=== PATIENT | male | born 1985 | race Caucasian/White ===

== ENCOUNTER → 2022-10-27 17:29 | Outpatient (CLI) | payer OTHER, SELFPAY | PROVIDERS: Referring Provider Obstetrics & Gynecology; Visit Provider Obstetrics & Gynecology | DX: Z31.441 Encounter for testing of male partner of patient with recurrent pregnancy loss (principal); Z82.79 Family history of other congenital malformations, deformations and chromosomal abnormalities | CPT/HCPCS: 36415; 88230; 88262 ==

== ENCOUNTER → 2023-07-17 07:14 | Outpatient (CLI) | payer OTHER, SELFPAY ==
--- NOTE | 2023-07-17 07:16 | DI.MRI.S_ITS ---
PROCEDURE: MR LUMBAR SPINE WO CON INDICATIONS: Low back pain, unspecified TECHNIQUE: Noncontrast sagittal T1 spin echo and T2 fast echo, sagittal STIR, and T2 fast spin echo through the lumbar spine. In cases with scoliosis, additional coronal T2 fast spin echo may be performed. COMPARISON: None. FINDINGS: Image quality: Excellent. Alignment and Curvature: 11 millimeters of anterolisthesis of L5-S1, consistent with grade 2. Minimal retrolisthesis of L4 on L5. Bone Marrow: Bilateral L5 pars interarticularis defects. Modic type 1 and type 2 degenerative endplate changes at L5-S1. Marrow is otherwise of normal overall signal. No acute vertebral body compression fractures. Sclerotic focus within the left iliac bone, likely a bone island. Spinal Cord: Conus medullaris terminates at the L1 level. Visualized cord demonstrates normal signal and size. Paraspinous Soft Tissues: No paravertebral masses. T12-L1: Normal appearance. L1-L2: Normal appearance. L2-L3: Normal appearance. L3-L4: Normal appearance. L4-L5: Disc desiccation height loss. Minimal posterior disc bulge. No central canal or neural foraminal stenosis. L5-S1: Anterolisthesis. No central canal stenosis. Uncovering of the disc. Facet arthropathy. Severe bilateral neural foraminal stenosis, worse on the right with likely compression of the exiting nerve roots. IMPRESSION: 1. Grade 2 anterolisthesis of L5-S1 with bilateral pars interarticularis defects. 2. Severe bilateral neural foraminal stenosis at L5-S1 with likely compression of the exiting nerve roots, right greater than left. Dictated by: Marcos Armendariz M.D. on 07/17/2023 at 8:33 Approved by: Marcos Armendariz M.D. on 07/17/2023 at 8:39
== END ==
LOC: MRI 07:15
PROVIDERS: Referring Provider Internal Medicine; Visit Provider Internal Medicine
DX: M48.07 Spinal stenosis, lumbosacral region (principal); M43.17 Spondylolisthesis, lumbosacral region; M54.50 Low back pain, unspecified; G54.9 Nerve root and plexus disorder, unspecified
CPT/HCPCS: 72148

== ENCOUNTER → 2023-09-08 15:18 | Outpatient (CLI) | payer OTHER, SELFPAY ==
--- NOTE | 2023-09-08 15:19 | DI.MRI.S_ITS ---
PROCEDURE: MR KNEE RT WO CON INDICATIONS: EFFUSION RT KNEE TECHNIQUE: Noncontrast sagittal PD fast spin echo and T2 fast spin echo with fat saturation, sagittal 3-D FLASH with fat saturation; coronal T1 spin echo and PD fast spin echo with fat saturation, and axial PD fast spin echo with fat saturation through the knee. COMPARISON: None. FINDINGS: Image quality: Excellent. Menisci: There is nondisplaced tear involving the posterior horn of the medial meniscus. The lateral meniscus demonstrates normal morphology and internal signal. The meniscal root ligaments appear intact. Cruciate ligaments: The anterior and posterior cruciate ligaments appear intact. Medial structures: The medial collateral ligament appears intact. The semimembranosus tendon insertions and meniscocapsular junction appear intact. Visualized portions of the pes anserinus tendons appear normal. No abnormal bursal fluid. Lateral structures: The lateral collateral ligament, long and short heads of the biceps femoris tendon appear intact. The popliteus tendon appears normal. Iliotibial band appears normal. Anterior structures: The quadriceps and patellar tendons appear intact. There is mild quadriceps tendinitis. Patellar alignment is normal. No femoral trochlear dysplasia or ventral trochlear prominence. No edema in the infrapatellar fat pad. Bones and cartilage: No bone marrow contusions or fractures. There is generalized cartilage fibrillation. A full-thickness cartilage fissure is noted in the medial facet of patella. Joint space: There is small knee joint effusion. There is a tiny Markham's cyst. Normal appearing synovial plicae are incidentally noted. IMPRESSION: 1. Tear of the posterior horn of the medial meniscus. 2. Mild quadriceps tendinitis. 3. Full-thickness cartilage fissure in the medial facet of patella. 4. Small knee joint effusion. Dictated by: Toro Gonzalez M.D. on 09/09/2023 at 8:31 Approved by: Toro Gonzalez M.D. on 09/09/2023 at 8:39
== END ==
LOC: MRI 15:18
PROVIDERS: Referring Provider Student in an Organized Health Care Education/Training Program; Visit Provider Student in an Organized Health Care Education/Training Program
DX: S83.241A Other tear of medial meniscus, current injury, right knee, initial encounter (principal); M76.51 Patellar tendinitis, right knee; M25.461 Effusion, right knee
CPT/HCPCS: 73721